=== PATIENT | male | born 1950 | race Caucasian/White ===

== ENCOUNTER 2018-03-28 11:19 | Inpatient (IN) | payer OTHER, MEDICAID ==
[~2018-03-28] VITALS: Ht 182.9 cm; Wt 218.0 kg
[~2018-03-28 11:19] MED LIST: AML5T PO; DIG025T PO; DOC100C PO; FER325T PO; FURO40TA PO; GLIP1TAB38; HYDR-4296 PO; HYDR25TA4; LOS50T PO; MET50T PO; METF-371 PO; MULTLIQ36 PO; NOR10T PO; POTA20IN2 PO; RANITAB8 PO; WARF4TAB31; WARF4TAB33; WARF6TAB21
[2018-03-28] MEDS ORDERED: SODIUM CHLORIDE 0.9% 1,000 ML IV ONE (12:26)
[2018-03-28] MEDS ORDERED: METOPROLOL TARTRATE 1MG/1ML-5ML VIAL IV ONE (12:30)
[2018-03-28] MEDS ORDERED: MORPHINE SULFATE 4 MG/ML SYR/VIAL IV ONE (12:30)
[2018-03-28] MEDS ORDERED: ASPirin 81 mg TAB PO ONE (12:30)
[2018-03-28] MEDS ORDERED: SPIRONOLACTONE 25 MG TAB PO ONE (12:30)
[2018-03-28] MEDS ORDERED: FUROSEMIDE 40 MG/4 ML VIAL IV ONE (12:30)
[2018-03-28] MEDS ORDERED: ONDANSETRON HCL 4 MG/2 ML VIAL IV ONE (12:45)
[2018-03-28 12:47] LABS: Basophils # (auto) 0.1 uL; Eosinophils # (auto) 0.1 uL; Lymphocytes # (auto) 1.7 uL; Mean Corpuscular Volume 80.8 fL (80.0-100.0); Monocytes # (auto) 0.8 uL; Neutrophils # (auto) 6.4 uL
[2018-03-28 12:49] LABS: Basophils % (auto) 1.5 % (0.0-2.0); Eosinophils % (auto) 0.9 % (0.0-7.0); Hematocrit 39.5 % (41.0-53.0); Lymphocytes % (auto) 18.6 % (10.0-50.0); Mean Corpuscular Hemoglobin 26.5 pg (28.0-32.0); Mean Corpuscular Hgb Conc. 32.8 g/dL (32.0-36.0); Monocytes % (auto) 8.3 % (0.0-12.0); Neutrophils % (auto) 70.7 % (37.0-80.0); Platelet Count (auto) 158 10^3/uL (140-450); Red Blood Cells 4.89 10^6/uL (4.5-5.90); Red Cell Distribution Width 17.7 % (11.8-14.3)
[2018-03-28 13:00] LABS: INR 1.56 (0.9-1.15); Partial Thromboplastin Time 30.7 sec (23.78-33.04); Prothrombin Time 16.3 sec (9.27-12.13)
[2018-03-28 13:03] LABS: Albumin 3.1 g/dL (3.4-5.0); Calcium 8.3 mg/dL (8.5-10.1); Potassium 3.7 mmol/L (3.5-5.1)
[2018-03-28] MEDS ORDERED: WARF1TAB36 PO (13:04)
[2018-03-28] MEDS ORDERED: AMLO5TAB13 PO (13:04)
[2018-03-28] MEDS ORDERED: MET50T PO (13:04)
[2018-03-28] MEDS ORDERED: INSLANTI SC (13:04)
[2018-03-28] MEDS ORDERED: METF500S PO (13:04)
[2018-03-28 13:08] LABS: Bilirubin, Total 1.2 mg/dL (0.2-1.0); Total Protein 7.4 g/dL (6.4-8.2)
[2018-03-28] MEDS ORDERED: hydrALAZINE HCL 20 MG/ML VL IV ONE (14:00)
[2018-03-28 14:36] LABS: Urine Bacteria NONE SEEN /hpf (None Seen); Urine Blood 2+ /uL (Negative); Urine Hyaline Cast FEW /lpf (0 - 2); Urine Mucus FEW (None Seen); Urine Specific Gravity 1.011 (1.001-1.035); Urine WBC 1 /hpf (0 - 3)
[2018-03-28] MEDS ORDERED: VANCOMYCIN PER PHARMACY 0 MG IV SCH (15:45)
[2018-03-28] MEDS ORDERED: DEXTROSE (50%) 50ML SYRG IV PRN (15:45)
[2018-03-28] MEDS ORDERED: cefTRIAXone 1GM/50ML D5W 50 ML IV ONE (15:45)
[2018-03-28] MEDS ORDERED: cloNIDine HCL 0.1 MG TAB PO PRN (15:45)
[2018-03-28] MEDS ORDERED: DIGOXIN (250MCG/ML) 2 ML AMPULE IV ONE (15:45)
[2018-03-28] MEDS ORDERED: DOCUSATE SOD 100 MG CAP PO PRN (16:00)
[2018-03-28] MEDS ORDERED: NITROGLYCERIN 0.4 MG SL TAB SL PRN (16:00)
[2018-03-28] MEDS ORDERED: LABETALOL HCL 5 MG/ML ML 20ML VIAL IV PRN (16:00)
[2018-03-28] MEDS ORDERED: TEMAZEPAM 15 MG CAP PO PRN (16:00)
[2018-03-28] MEDS ORDERED: ONDANSETRON HCL 4 MG/2 ML VIAL IV PRN (16:00)
[2018-03-28] MEDS ORDERED: MORPHINE SULFATE 4 MG/ML SYR/VIAL IV PRN ×2 (16:00)
[2018-03-28] MEDS ORDERED: ACETAMINOPHEN 325 MG TAB PO PRN (16:00)
[2018-03-28] MEDS ORDERED: HYDROcodone-ACET 5/325MG TAB PO PRN (16:00)
[2018-03-28] MEDS ORDERED: WARFARIN SODIUM 5 MG TAB PO ONE (17:00)
[2018-03-28] MEDS ORDERED: WARFARIN SODIUM 2 MG TAB PO ONE ×2 (17:00)
[2018-03-28] MEDS ORDERED: WARFARIN SODIUM 1 MG TAB PO ONE (17:00)
[2018-03-28] MEDS: ALBUTEROL SULF 2.5 MG/0.5ML(0.5%) NEB SOLN NEB SCH (18:23)
[2018-03-28] MEDS: IPRATROPIUM BROM 0.5 MG/2.5ML INH SOL NEB SCH (18:23)
[2018-03-28] MEDS: ACCU-CHEK COMFORT CURVE STRIP VI SCH ×2 (18:59→22:37)
[2018-03-28] MEDS: InsuLIN REG 1unit/0.01ml Soln (100units/ml) SC SCH ×2 (18:59→22:35)
[2018-03-28] MEDS: SPIRONOLACTONE 25 MG TAB PO SCH (18:59)
[2018-03-28] MEDS: FUROSEMIDE 40 MG/4 ML VIAL IV SCH (18:59)
[2018-03-28 19:23] VITALS: BP 168/112
[2018-03-28] MEDS: VANCOMYCIN 1,250 MG in D5W 5% 250 ML IV SCH (19:35)
[2018-03-28] MEDS: METOPROLOL TARTRATE 25 MG TAB PO SCH (20:15)
[2018-03-28] MEDS: SODIUM CHLOR 0.9% PF (SALINE LOCK) 10ML VIAL/SYR IV SCH (22:20)
[2018-03-28] MEDS: POTASSIUM CHL 10 Meq TABLET PO SCH (22:30)
[2018-03-28] MEDS: INSULIN LANTUS (GLARGINE) 1 /0.01ml (100units/ml) SC SCH (22:35)
[2018-03-28] MEDS: NYSTATIN TOPICAL POWDER 15GM TOP SCH (23:02)
[2018-03-29] MEDS: IPRATROPIUM BROM 0.5 MG/2.5ML INH SOL NEB SCH ×4 (00:14→18:00)
[2018-03-29] MEDS: ALBUTEROL SULF 2.5 MG/0.5ML(0.5%) NEB SOLN NEB SCH ×4 (00:14→18:00)
[2018-03-29] MEDS ORDERED: VANCOMYCIN 1GM/250ML 500 ML IV ONE (05:33)
[2018-03-29] MEDS: VANCOMYCIN 1,250 MG in D5W 5% 250 ML IV SCH ×2 (05:53→18:47)
[2018-03-29] MEDS: ACCU-CHEK COMFORT CURVE STRIP VI SCH ×4 (05:54→22:31)
[2018-03-29] MEDS: InsuLIN REG 1unit/0.01ml Soln (100units/ml) SC SCH ×4 (06:15→22:41)
[2018-03-29] MEDS: FUROSEMIDE 40 MG/4 ML VIAL IV SCH ×2 (06:15→18:47)
[2018-03-29] MEDS: SODIUM CHLOR 0.9% PF (SALINE LOCK) 10ML VIAL/SYR IV SCH ×3 (06:15→22:29)
[2018-03-29] MEDS: SPIRONOLACTONE 25 MG TAB PO SCH ×2 (06:15→18:48)
[2018-03-29 06:22] LABS: Basophils # (auto) 0.1 uL; Eosinophils # (auto) 0.1 uL; Lymphocytes # (auto) 0.7 uL; Monocytes # (auto) 0.6 uL; Neutrophils # (auto) 6.5 uL
[2018-03-29 06:26] LABS: Basophils % (auto) 0.8 % (0.0-2.0); Eosinophils % (auto) 1.3 % (0.0-7.0); Hematocrit 38.2 % (41.0-53.0); Hemoglobin 12.5 g/dL (13.5-17.5); Lymphocytes % (auto) 8.9 % (10.0-50.0); Mean Corpuscular Hemoglobin 26.7 pg (28.0-32.0); Mean Corpuscular Hgb Conc. 32.8 g/dL (32.0-36.0); Mean Corpuscular Volume 81.5 fL (80.0-100.0); Monocytes % (auto) 7.7 % (0.0-12.0); Neutrophils % (auto) 81.3 % (37.0-80.0); Platelet Count (auto) 128 10^3/uL (140-450); Red Blood Cells 4.68 10^6/uL (4.5-5.90); Red Cell Distribution Width 17.5 % (11.8-14.3)
[2018-03-29 06:38] LABS: Albumin 2.7 g/dL (3.4-5.0); Calcium 7.9 mg/dL (8.5-10.1); Potassium 3.3 mmol/L (3.5-5.1)
[2018-03-29 06:40] LABS: BUN/Creatinine Ratio 23.4; INR 1.64 (0.9-1.15); Partial Thromboplastin Time 29.7 sec (23.78-33.04); Prothrombin Time 17.1 sec (9.27-12.13)
[2018-03-29 06:47] LABS: Total Protein 6.2 g/dL (6.4-8.2)
[2018-03-29] MEDS: cefTRIAXone 1GM/50ML D5W 50 ML IV SCH (09:12)
[2018-03-29] MEDS ORDERED: cefTRIAXone SOD 1,000 MG VL ONE (09:13)
[2018-03-29] MEDS: POTASSIUM CHL 10 Meq TABLET PO SCH ×2 (10:37→22:29)
[2018-03-29] MEDS: MULTIPLE VITAMIN TAB PO SCH (10:38)
[2018-03-29] MEDS: METOPROLOL TARTRATE 25 MG TAB PO SCH ×2 (10:38→22:30)
[2018-03-29] MEDS: amLODIPine BESYLATE 5 MG TAB PO SCH (10:44)
[2018-03-29] MEDS: NYSTATIN TOPICAL POWDER 15GM TOP SCH ×2 (10:44→22:31)
--- NOTE | 2018-03-29 10:56 | NUR ---
WOUND CARE NOTE: Wound care in to see patient per wound care request regarding "groin rash" that are noted present on admission. ED nurse took photograph of patient's skin integrity issue upon admission for reference. Patient is 67 y/o male with admitting diagnosis of Acute Dyspnea, CHF Exacerbation, Early Sepsis. He has history of A Fib, anemia, DM, CHF, hyperlipidemia, htn. Patient is resting in hospital bed in ER Rm.#1. Patient is awake, alert and oriented. Patient's family at bedside. Patient's family at bedside reported that patient recently feels week and stays mostly in bed and sometimes has urine leaks. Noted patient's bilateral groin and pubis are has red moist skin consistent with intertriginous rashes. Patient is able to assist in turning and repositioning and he turned to his Rt. side. No other wound noted other than mentioned intertrigo and patient's toe nails are long, thick and yellow. Cleansed bilateral groin rashes with mild soap and water,patted dry and applied Anti fungal clear ointment. Patient tolerated well. Repositioner for comfort. Patient's family at bedside. RECOMMENDATION: BID/PRN cleaning and application of Antifungal clear ointment to groin, perineum rashes per MD order, redistribute pressure points with pillows, elevate heels on pillows, continue monitoring by wound care while patient is hospitalized. Addendum: 03/29/18 at 1504 by Ara Roberts RN Amended: Links added.
[2018-03-29] MEDS ORDERED: DIGOXIN 0.25 MG TAB PO ONE (13:00)
[2018-03-29] MEDS ORDERED: IOHEXOL 350 MG/ML 100ML IJ ONE (13:02)
[2018-03-29] MEDS ORDERED: WARFARIN SODIUM 2.5 MG TAB PO ONE (17:00)
[2018-03-29] MEDS: INSULIN LANTUS (GLARGINE) 1 /0.01ml (100units/ml) SC SCH (22:41)
[2018-03-30] MEDS: IPRATROPIUM BROM 0.5 MG/2.5ML INH SOL NEB SCH ×3 (00:09→11:55)
[2018-03-30] MEDS: ALBUTEROL SULF 2.5 MG/0.5ML(0.5%) NEB SOLN NEB SCH ×3 (00:09→11:55)
[2018-03-30 05:58] LABS: Basophils # (auto) 0.1 uL; Eosinophils # (auto) 0.1 uL; Hemoglobin 12.7 g/dL (13.5-17.5); Monocytes # (auto) 0.7 uL
[2018-03-30 06:00] LABS: Basophils % (auto) 0.9 % (0.0-2.0); Eosinophils % (auto) 1.4 % (0.0-7.0); Hematocrit 38.5 % (41.0-53.0); Lymphocytes # (auto) 1.2 uL; Monocytes % (auto) 8.1 % (0.0-12.0); Neutrophils % (auto) 76.6 % (37.0-80.0); Nucleated Red Blood Cells % 0.1 %; Platelet Count (auto) 162 10^3/uL (140-450); White Blood Cell 9.2 10^3/uL (4.4-10.8)
[2018-03-30] MEDS: VANCOMYCIN 1,250 MG in D5W 5% 250 ML IV SCH (06:00)
[2018-03-30 06:07] LABS: INR 2.01 (0.9-1.15); Partial Thromboplastin Time 30.4 sec (23.78-33.04); Prothrombin Time 20.7 sec (9.27-12.13)
[2018-03-30] MEDS: FUROSEMIDE 40 MG/4 ML VIAL IV SCH ×2 (06:10→17:24)
[2018-03-30] MEDS: SPIRONOLACTONE 25 MG TAB PO SCH ×2 (06:10→17:24)
[2018-03-30] MEDS: SODIUM CHLOR 0.9% PF (SALINE LOCK) 10ML VIAL/SYR IV SCH ×2 (06:10→14:01)
[2018-03-30] MEDS ORDERED: VANCOMYCIN HCL 1000 MG VL ONE (06:23)
[2018-03-30] MEDS ORDERED: VANCOMYCIN HCL 500 MG VL ONE (06:28)
[2018-03-30 06:33] LABS: Albumin 2.7 g/dL (3.4-5.0); BUN/Creatinine Ratio 25.3; Potassium 3.6 mmol/L (3.5-5.1)
[2018-03-30 06:39] LABS: Bilirubin, Total 0.7 mg/dL (0.2-1.0); Total Protein 6.6 g/dL (6.4-8.2)
[2018-03-30] MEDS: InsuLIN REG 1unit/0.01ml Soln (100units/ml) SC SCH ×3 (06:46→17:16)
[2018-03-30] MEDS: ACCU-CHEK COMFORT CURVE STRIP VI SCH ×3 (06:46→17:16)
[2018-03-30] MEDS: cefTRIAXone 1GM/50ML D5W 50 ML IV SCH (08:51)
[2018-03-30] MEDS: POTASSIUM CHL 10 Meq TABLET PO SCH (09:38)
[2018-03-30] MEDS: MULTIPLE VITAMIN TAB PO SCH (09:39)
[2018-03-30] MEDS: METOPROLOL TARTRATE 25 MG TAB PO SCH (09:39)
[2018-03-30] MEDS: amLODIPine BESYLATE 5 MG TAB PO SCH (09:39)
[2018-03-30] MEDS: NYSTATIN TOPICAL POWDER 15GM TOP SCH (09:39)
[2018-03-30] MEDS ORDERED: DIGOXIN 0.25 MG TAB PO SCH (10:00)
--- NOTE | 2018-03-30 10:59 | NUR ---
TRANSFER: FAXED ORDER TO [facility], THEY WILL LOOK FOR BED FOR PT AT [facility] AND GET BACK WITH ME
[2018-03-30] MEDS ORDERED: VANCOMYCIN 1,250 MG in D5W 5% 250 ML IV SCH (14:00)
--- NOTE | 2018-03-30 15:55 | NUR ---
TRANSFER: CALLED [facility] AND SPOKE TO SHAW CHANG CM FOR [facility]. SHE STATED SHE STILL DOES NOT HAVE A BED FOR PT AND WILL CALL CORWIN DE OLIVEIRA RN FOR ANY FURTHER UPDATES.
[2018-03-30] MEDS ORDERED: WARFARIN SODIUM 5 MG TAB PO ONE (17:00)
[2018-03-30 17:38] VITALS: BP 148/90
[2018-03-30] MEDS ORDERED: SACUBITRIL-VALSARTAN 24mg/26mg TAB PO SCH (22:00)
== END 2018-03-30 17:38 | disposition short-term general hospital (02) | DRG 871 ==
LOC: EDBD 11:19 → ER 11:23 → TELE 15:52
PROVIDERS: ADMIT Internal Medicine; ATTEND Family Medicine
DX: A41.9 Sepsis, unspecified organism (principal); J69.0 Pneumonitis due to inhalation of food and vomit; G92 Toxic encephalopathy; I50.43 Acute on chronic combined systolic (congestive) and diastolic (congestive) heart failure; E44.0 Moderate protein-calorie malnutrition; I13.0 Hypertensive heart and chronic kidney disease with heart failure and stage 1 through stage 4 chronic kidney disease, or unspecified chronic kidney disease; I48.92 Unspecified atrial flutter; Z68.44 Body mass index [BMI] 60.0-69.9, adult; D64.9 Anemia, unspecified; E11.21 Type 2 diabetes mellitus with diabetic nephropathy; E11.22 Type 2 diabetes mellitus with diabetic chronic kidney disease; I48.91 Unspecified atrial fibrillation; N18.2 Chronic kidney disease, stage 2 (mild); R06.03 Acute respiratory distress; E78.5 Hyperlipidemia, unspecified; E11.42 Type 2 diabetes mellitus with diabetic polyneuropathy; K21.9 Gastro-esophageal reflux disease without esophagitis; T45.515A Adverse effect of anticoagulants, initial encounter; Y92.89 Other specified places as the place of occurrence of the external cause; Z95.0 Presence of cardiac pacemaker; Z79.4 Long term (current) use of insulin; Z95.1 Presence of aortocoronary bypass graft
CPT/HCPCS: 36415; 71045; 71275; 80053; 80162; 80202; 81001; 82962; 83036; 83605; 83735; 83880; 84443; 84484; 85025; 85379; 85610; 85730; 87040; 93005; 93306; 93970; 94640; 94761; 96361; 96374; 96375; 99291; G0378; J0696; J1815; J2405; J7060